=== PATIENT | male | born 1960 | race Caucasian/White ===

== ENCOUNTER → 2016-10-03 | Outpatient (CLI) | payer BC ==
[~2016-10-03] MED LIST: ALBU1AER9 INH; ALL180 PO; AMLO-110 PO; ATOR10TA82 PO; HYDC25 PO; SNG10 PO; SYMIN/8045 INH; SYN75 PO
== END | disposition home or self-care (01) ==
LOC: C.LAB1850 14:38
PROVIDERS: ATTEND Urology
DX: R97.20 Elevated prostate specific antigen [PSA] (principal); J45.909 Unspecified asthma, uncomplicated

== ENCOUNTER → 2017-04-17 | Outpatient (CLI) | payer BC | END | disposition home or self-care (01) | LOC: C.LAB1850 07:58 | PROVIDERS: ATTEND Urology | DX: N41.1 Chronic prostatitis (principal); J45.909 Unspecified asthma, uncomplicated ==

== ENCOUNTER → 2017-05-24 | Outpatient (CLI) | payer OTHER ==
[~2017-05-24] MED LIST changes: -AMLO-110 PO; +AMLO5TAB3 PO; +GADAVIST IV PRN
--- NOTE | 2017-05-24 15:17 | DIAGNOSTIC IMAGING REPORT ---
PROSTATE MRI COMBO CLINICAL HISTORY: 56 years-old Male presenting with R97.20 Elevated prostate specific antigen (PSA)not diabetic, no. TECHNIQUE: Multisequence, multiplanar MR imaging of the prostate was performed before and after the administration of intravenous contrast. Additional postprocessing was performed on a separate [employer] workstation by the radiologist for 3-D volumetric segmentation of the prostate and contouring of region(s) of interest (SINDY) for targeting. IV contrast: 6.5 mL. COMPARISON: CT abdomen and pelvis 09/10/2011. FINDINGS: Prostate: The prostate measures 4.2 x 4.3 x 3.3 cm (DynaCAD prostate boundary segmentation volume 57.33 mL). Moderate changes of benign prostatic hyperplasia. Precontrast T1 weighted imaging demonstrates no evidence of intrinsic T1 hyperintensity to suggest hemorrhage. Seminal vesicles normal. Suspicious lesion(s) described below: Lesion (DynaCAD SINDY) : Location: Right anterior peripheral zone at the mid gland. The lesion does not extend across the midline. Size: 1.3 x 0.8 mm (as measured on ADC for PZ lesion and T2WI for TZ lesion) T2W: 3. Heterogeneous signal intensity are noncircumscribed, rounded, moderate hypointensity. No evidence of extraprostatic extension. DWI: 2. Indistinct hypointense on ADC. DCE: Positive. Focal enhancement corresponding to a suspicious finding, earlier or contemporaneous with adjacent normal tissue. PI-RADS: 3. The presence of clinically significant cancer is equivocal. Bladder: Bladder wall thickening likely indicating chronic outlet obstruction. Bowel: Visualized portion of the rectum normal. Peritoneum: No free fluid in the pelvis. Lymph nodes: No lymphadenopathy in the visualized portion of the pelvis. Vasculature: Iliac vessels patent. Abdominal wall: Normal. Osseous structures: Normal bone marrow signal intensity. IMPRESSION: 1. 13 mm lesion in the Right anterior peripheral zone at the mid gland. PI-RADS: 3. The presence of clinically significant cancer is equivocal. This lesion has been segmented for targeted biopsy. 2. Benign prostatic hyperplasia. Electronically signed by: Xavier Abbott M.D. 05/24/2017 3:15 PM Dictated Date/Time: 05/24/2017 10:00 AM
== END | disposition home or self-care (01) ==
LOC: C.MRIBC 07:33
PROVIDERS: ATTEND Urology
DX: R97.20 Elevated prostate specific antigen [PSA] (principal); N40.0 Benign prostatic hyperplasia without lower urinary tract symptoms; R93.8 Abnormal findings on diagnostic imaging of other specified body structures

== ENCOUNTER → 2017-06-10 | Outpatient (CLI) | payer OTHER ==
[~2017-06-10] MED LIST changes: +AMLO-110 PO; -AMLO5TAB3 PO; -GADAVIST IV PRN
--- NOTE | 2017-06-10 12:57 | DIAGNOSTIC IMAGING REPORT ---
R FINGER(S) MIN 2 VIEWS ROUTINE CLINICAL HISTORY: Right fifth digit injury. COMPARISON: None FINDINGS: There is an acute minimally displaced fracture within the distal shaft and distal tuft of the distal phalanx of the right fifth finger. There is soft tissue swelling. No additional fractures are identified. IMPRESSION: Acute minimally displaced fracture of the distal phalanx of the right fifth finger. Electronically signed by: Charles Brooks M.D. 06/10/2017 12:56 PM Dictated Date/Time: 06/10/2017 12:54 PM
== END | disposition home or self-care (01) ==
LOC: C.RAD1850 12:21
PROVIDERS: ATTEND Student in an Organized Health Care Education/Training Program
DX: S62.636A Displaced fracture of distal phalanx of right little finger, initial encounter for closed fracture (principal); W23.1XXA Caught, crushed, jammed, or pinched between stationary objects, initial encounter; Y92.89 Other specified places as the place of occurrence of the external cause

== ENCOUNTER → 2017-07-01 | Outpatient (CLI) | payer OTHER ==
--- NOTE | 2017-07-01 11:00 | DIAGNOSTIC IMAGING REPORT ---
RIGHT FIFTH FINGER 3 VIEWS HISTORY: Right fifth finger fracture. COMPARISON: Right finger 06/10/2017. FINDINGS: No significant change in the minimally displaced fracture involving the distal tuft of the right ring finger. No significant healing at this time. Distal soft tissue swelling also persists. No dislocation. No radiopaque foreign bodies. IMPRESSION: No significant change in the minimally displaced fracture at the distal phalanx of the right fifth finger. Electronically signed by: Tashi Guajardo M.D. 07/01/2017 10:59 AM Dictated Date/Time: 07/01/2017 10:57 AM
== END | disposition home or self-care (01) ==
LOC: C.RAD1850 10:38
PROVIDERS: ATTEND Family Medicine
DX: S62.666D Nondisplaced fracture of distal phalanx of right little finger, subsequent encounter for fracture with routine healing (principal); X58.XXXD Exposure to other specified factors, subsequent encounter

== ENCOUNTER → 2017-08-01 | Outpatient (CLI) | payer OTHER ==
--- NOTE | 2017-08-01 16:32 | DIAGNOSTIC IMAGING REPORT ---
FINGER(S) MIN 2 VIEWS ROUTINE HISTORY: 57 years-old Male OTHER INJURY OF UNSPECIFIED BODY REGION,INITIAL ENCOUNTER acute right fifth finger injury status post trauma COMPARISON: Right finger radiographs 07/01/2017 and 06/10/2017 TECHNIQUE: 3 views of the right fingers with attention to the fifth digit FINDINGS: Unchanged alignment of the mildly displaced fracture involving the distal tuft of the right fifth distal phalanx. There is no significant healing of the fracture comparison. There is suggestion of increased lucency at the fracture site. No significant soft tissue swelling. No opaque foreign body or significant degenerative changes. IMPRESSION: Unchanged alignment of the subacute appearing minimally displaced fracture of the distal phalanx right fifth finger. There is suggestion of increased lucency at the fracture site suspicious for acute reinjury or delayed healing. Follow-up recommended. The above report was generated using voice recognition software. It may contain grammatical, syntax or spelling errors. Electronically signed by: Xavier Abbott M.D. 08/01/2017 4:30 PM Dictated Date/Time: 08/01/2017 4:27 PM
== END | disposition home or self-care (01) ==
LOC: C.RAD1850 15:56
PROVIDERS: ATTEND Student in an Organized Health Care Education/Training Program
DX: S62.636A Displaced fracture of distal phalanx of right little finger, initial encounter for closed fracture (principal); X58.XXXA Exposure to other specified factors, initial encounter; Z88.1 Allergy status to other antibiotic agents; Z88.6 Allergy status to analgesic agent; Z88.2 Allergy status to sulfonamides; Z91.048 Other nonmedicinal substance allergy status

== ENCOUNTER → 2017-09-02 | Outpatient (CLI) | payer OTHER | END | disposition home or self-care (01) | LOC: C.LAB1850 08:07 | PROVIDERS: ATTEND Urology | DX: R97.20 Elevated prostate specific antigen [PSA] (principal) ==

== ENCOUNTER → 2017-09-03 | Outpatient (CLI) | payer OTHER | END | disposition home or self-care (01) | LOC: C.RDSM 11:30 | PROVIDERS: ATTEND Family Medicine Sports Medicine | DX: S62.609A Fracture of unspecified phalanx of unspecified finger, initial encounter for closed fracture (principal); X58.XXXA Exposure to other specified factors, initial encounter ==